=== PATIENT | female | born 1985 | race Caucasian/White ===

== ENCOUNTER 2019-04-13 07:05 | Emergency (ER) | payer BC ==
[~2019-04-13] VITALS: Ht 167.6 cm; Wt 54.4 kg
[2019-04-13] MEDS ORDERED: HYDR-3326 PO (07:15)
--- NOTE | 2019-04-13 07:20 | NUR ---
TORREY PARKS AT BEDSIDE FOR MSE.
[2019-04-13] MEDS ORDERED: DEXAMETHASONE SOD PHOSPHATE 4 MG INJ ONE (07:30)
[2019-04-13] MEDS ORDERED: DEXAMETHASONE SOD PHOSPHATE 4 MG INJ IM ONE (07:30)
--- NOTE | 2019-04-13 07:44 | NUR ---
Patient discharged to home in stable conditon. Written and verbal after care instructions given. Patient verbalizes understanding of instructions. ALL BELONGINGS W/ PT. PT SELF-AMBULATED W/O DIFFICULTY.
[2019-04-13 07:45] VITALS: BP 111/70
== END 2019-04-13 07:47 | disposition home or self-care (01) ==
LOC: ER 07:05
DX: M25.512 Pain in left shoulder (principal); Z79.899 Other long term (current) drug therapy
CPT/HCPCS: 96372; 99283; J1100; A4663

== ENCOUNTER 2019-04-13 16:47 | Emergency (ER) | payer BC ==
[~2019-04-13] VITALS: Ht 167.6 cm; Wt 54.4 kg
[~2019-04-13 16:47] MED LIST: HYDR-3326 PO
[2019-04-13] MEDS ORDERED: KETOROLAC TROMETHAMINE 30 MG INJ IM ONE (18:00)
[2019-04-13] MEDS ORDERED: PANTOPRAZOLE SODIUM 40 MG TABLET.DR PO ONE ×2 (18:00→18:10)
[2019-04-13] MEDS ORDERED: KETOROLAC TROMETHAMINE 30 MG INJ ONE (18:09)
[2019-04-13 18:25] VITALS: BP 116/72
== END 2019-04-13 18:27 | disposition home or self-care (01) ==
LOC: ER 16:48
DX: M25.512 Pain in left shoulder (principal); Z79.899 Other long term (current) drug therapy
CPT/HCPCS: 96372; 99283; J1885; A4663